=== PATIENT | male | born 1950 | race Two or more races ===

== ENCOUNTER 2022-08-16 11:43 | Inpatient (IN) | payer OTHER ==
[~2022-08-16] VITALS: Ht 152.4 cm; Wt 90.7 kg
[2022-08-16] MEDS ORDERED: NEURONTIN300 MG PO (11:49)
[2022-08-16] MEDS ORDERED: NOVOLIN N100 UNIT/1 (11:49)
[2022-08-16] MEDS ORDERED: PLAVIX75 MG (11:49)
[2022-08-22] MEDS ORDERED: GLIPIZIDE5 MG (16:25)
[2022-08-22] MEDS ORDERED: FUROSEMIDE20 MG (16:26)
[2022-08-22] MEDS ORDERED: TAMSULOSIN HCL0.4 MG (16:26)
[2022-08-22] MEDS ORDERED: CLONAZEPAM0.5 MG (16:26)
[2022-08-22] MEDS ORDERED: ATORVASTATIN CA40 MG (16:26)
[2022-08-22] MEDS ORDERED: ST. JOSEPH ASPI81 M2 (16:26)
[2022-08-22] MEDS ORDERED: SEVELAMER CARB800 MG (16:26)
[2022-08-22] MEDS ORDERED: QUETIAPINE FUMA50 MG (16:26)
[2022-08-24] MEDS ORDERED: GABAPENTIN300 MG PO (15:48)
[2022-08-24] MEDS ORDERED: ADULT ASPIRIN81 MG PO (15:48)
[2022-08-24] MEDS ORDERED: LIPITOR40 MG PO (15:48)
== END 2022-08-25 16:54 | disposition home or self-care (01) | DRG 91 ==
LOC: ER 11:43 → ICU-2 17:33 → ICU 08-20 11:24 → SURH 08-24 21:26
PROVIDERS: ADMIT Internal Medicine; ATTEND Internal Medicine
PROC: BW28ZZZ Computerized Tomography (CT Scan) of Head (ICD-10-PCS; 2022-08-16)
PROC: B24BZZZ Ultrasonography of Heart with Aorta (ICD-10-PCS; 2022-08-16)
PROC: 5A1D70Z Performance of Urinary Filtration, Intermittent, Less than 6 Hours Per Day (ICD-10-PCS; 2022-08-17)
PROC: 0HDMXZZ Extraction of Right Foot Skin, External Approach (ICD-10-PCS; principal; 2022-08-18)
PROC: 5A1D70Z Performance of Urinary Filtration, Intermittent, Less than 6 Hours Per Day (ICD-10-PCS; 2022-08-18)
PROC: BW24ZZZ Computerized Tomography (CT Scan) of Chest and Abdomen (ICD-10-PCS; 2022-08-20)
PROC: 5A1D70Z Performance of Urinary Filtration, Intermittent, Less than 6 Hours Per Day (ICD-10-PCS; 2022-08-20)
PROC: 0HBMXZZ Excision of Right Foot Skin, External Approach (ICD-10-PCS; 2022-08-22)
PROC: 5A1D70Z Performance of Urinary Filtration, Intermittent, Less than 6 Hours Per Day (ICD-10-PCS; 2022-08-22)
PROC: 4A12X4Z Monitoring of Cardiac Electrical Activity, External Approach (ICD-10-PCS; 2022-08-25)
DX: G92.8 Other toxic encephalopathy (principal); A41.9 Sepsis, unspecified organism; I21.4 Non-ST elevation (NSTEMI) myocardial infarction; N18.6 End stage renal disease; I13.2 Hypertensive heart and chronic kidney disease with heart failure and with stage 5 chronic kidney disease, or end stage renal disease; T81.42XA Infection following a procedure, deep incisional surgical site, initial encounter; N17.9 Acute kidney failure, unspecified; R41.82 Altered mental status, unspecified; E11.22 Type 2 diabetes mellitus with diabetic chronic kidney disease; R06.02 Shortness of breath; E87.5 Hyperkalemia; Z99.2 Dependence on renal dialysis; Z79.4 Long term (current) use of insulin; I25.10 Atherosclerotic heart disease of native coronary artery without angina pectoris; E78.5 Hyperlipidemia, unspecified; B96.4 Proteus (mirabilis) (morganii) as the cause of diseases classified elsewhere; B96.20 Unspecified Escherichia coli [E. coli] as the cause of diseases classified elsewhere; B96.5 Pseudomonas (aeruginosa) (mallei) (pseudomallei) as the cause of diseases classified elsewhere; B95.2 Enterococcus as the cause of diseases classified elsewhere; B96.89 Other specified bacterial agents as the cause of diseases classified elsewhere; I50.9 Heart failure, unspecified; L08.9 Local infection of the skin and subcutaneous tissue, unspecified